=== PATIENT | female | born 1940 | race Caucasian/White ===

== ENCOUNTER → 2019-10-08 | Outpatient (CLI) | payer OTHER ==
[~2019-10-08] MED LIST: ASPI-496 PO; ATOR20TA PO; CALC-725; CARV12.52 PO; CHOL200074 PO; CYAN1TAB29 PO; ESOM40CA; METH454P PO; MULT-26 PO; NEBI5TAB3; VALS1TAB15; VALS1TAB29 PO; VIT1CAPS11 PO
[2019-10-08 14:34] LABS: BASOPHILS # (AUTO) 0.06 x10^3/uL (0-0.1); BASOPHILS % (AUTO) 1 % (0-1); EOSINOPHILS # (AUTO) 0.22 x10^3/uL (0-0.4); EOSINOPHILS % (AUTO) 3 % (1-7); LYMPHOCYTES # (AUTO) 1.82 x10^3/uL (1-3.4); LYMPHOCYTES % (AUTO) 23 % (22-44); MD NO; MEAN CORPUSCULAR HEMOGLOBIN 32.9 pg (27.0-34.8); MEAN CORPUSCULAR HGB CONC 33.5 g/dL (32.4-35.8); MEAN CORPUSCULAR VOLUME 98.1 fL (80-100); MEAN PLATELET VOLUME 6.3 fL (7.4-10.4); MONOCYTES # (AUTO) 0.68 x10^3/uL (0.2-0.8); MONOCYTES % (AUTO) 9 % (2-9); NEUTROPHILS # (AUTO) 5.21 x10^3/uL (1.8-6.8); NEUTROPHILS % (AUTO) 65 % (42-75); PLATELET COUNT 382 x10^3/uL (130-400); RED BLOOD COUNT 4.08 x10^6/uL (3.82-5.3); RED CELL DISTRIBUTION WIDTH 12.8 % (9.6-15.2)
[2019-10-08 14:40] LABS: ALANINE AMINOTRANSFERASE 26 U/L (12-78); ALBUMIN 3.8 g/dL (3.4-5.0); ANION GAP 7 mmol/L (5-15); CALCIUM 9.2 mg/dL (8.5-10.1); CHLORIDE 99 mmol/L (98-107); CREATININE 1.17 mg/dL (0.55-1.02); INTERNATIONAL NORMALIZED RATIO 0.96 (0.93-1.1); PROTHROMBIN TIME 10.2 Seconds (9.6-11.5)
[2019-10-08 14:43] LABS: ALKALINE PHOSPHATASE 103 U/L (45-117); BILIRUBIN,TOTAL 0.6 mg/dL (0.2-1.0)
== END | disposition home or self-care (01) ==
LOC: STAR 13:03
PROVIDERS: ATTEND Orthopaedic Surgery
DX: Z01.818 Encounter for other preprocedural examination (principal); M16.11 Unilateral primary osteoarthritis, right hip; M25.551 Pain in right hip
CPT/HCPCS: 36415; 80053; 83036; 85025; 85610; 85730; 87081; 93005

== ENCOUNTER 2019-10-13 08:25 | Observation (INO) | payer OTHER ==
[~2019-10-13] VITALS: Ht 165.1 cm; Wt 72.0 kg
[~2019-10-13 08:25] MED LIST changes: +ACETAMINOPHEN 650 MG/20.3 ML UDC PO PRN; +BISACODYL 10 MG SUPP PR PRN; +DIPHENHYDRAMINE 50 MG CAPSULE PO PRN; +EPINEPHRINE 1 MG/ML, 1ML ONE; +KETOROLAC 60 MG/2 ML ONE; +MAGNESIUM HYDROXIDE 8%, 30ML UDC PO PRN; +ONDANSETRON 2MG/ML, 2ML IV PRN; +ONDANSETRON 4 MG TABLET PO PRN; +OXYcodone IR 5MG TABLET PO PRN; +ROPIvacaine/PF 0.2%, 20 ML ONE; +SENNA/DOCUSATE TABLET PO PRN; +SODIUM CHLORIDE 0.9% 50 ML ONE; +TRANEXAMIC ACID 100 MG/ML, 10ML ONE; +VANCOMYCIN 1,000 MG ONE; +ZOLPIDEM 5MG TABLET PO PRN
[2019-10-13] MEDS ORDERED: MIDAZOLAM 1 MG/ML, 2ML ONE (08:39)
[2019-10-13] MEDS ORDERED: FENTANYL PF 250 MCG/5ML ONE (08:39)
[2019-10-13] MEDS: CARVEDILOL 12.5 MG TABLET PO SCH ×2 (09:00→19:49)
[2019-10-13] MEDS: DOCUSATE 100 MG CAPSULE PO SCH ×2 (09:00→19:49)
[2019-10-13] MEDS: ATORVASTATIN 20 MG TABLET PO SCH (09:00)
[2019-10-13] MEDS ORDERED: LACTATED RINGERS 1,000 ML IV SCH (09:20)
[2019-10-13 09:23] VITALS: BP 160/74
[2019-10-13] MEDS ORDERED: ACETAMINOPHEN 500 MG TABLET PO ONE (09:30)
[2019-10-13] MEDS ORDERED: GABAPENTIN 300 MG CAPSULE PO ONE (09:30)
[2019-10-13] MEDS ORDERED: CHLORHEXIDINE 15 ML UDC MM ONE (09:30)
[2019-10-13] MEDS ORDERED: ACETAMINOPHEN 500 MG TABLET ONE (09:31)
[2019-10-13] MEDS ORDERED: CHLORHEXIDINE 15 ML UDC ONE (09:32)
[2019-10-13] MEDS ORDERED: GABAPENTIN 300 MG CAPSULE ONE (09:32)
[2019-10-13] MEDS ORDERED: LABETALOL 5MG/ML, 20ML IV PRN (10:00)
[2019-10-13] MEDS ORDERED: HYDROmorphone 1 MG/ML, 1ML INJ IVPush PRN (10:00)
[2019-10-13] MEDS ORDERED: hydrALAzine 20 MG/ML, 1ML IV PRN (10:00)
[2019-10-13] MEDS ORDERED: HYDROcodone/APAP 7.5-325MG/15ML UDC PO PRN (10:00)
[2019-10-13] MEDS ORDERED: morphine SULFATE 10 MG/ML, 1ML IVPush PRN (10:00)
[2019-10-13] MEDS ORDERED: ONDANSETRON 2MG/ML, 2ML IVPush PRN (10:00)
[2019-10-13] MEDS ORDERED: PROMETHAZINE 25 MG/ML, 1ML IVPush PRN (10:00)
[2019-10-13] MEDS ORDERED: CEFAZOLIN 1,000 MG ONE ×2 (10:20)
[2019-10-13] MEDS ORDERED: hydrALAzine 20 MG/ML, 1ML ONE (10:40)
[2019-10-13] MEDS ORDERED: ONDANSETRON 2MG/ML, 2ML ONE (10:57)
[2019-10-13] MEDS ORDERED: ROCURONIUM 10MG/ML,5ML ONE (10:57)
[2019-10-13] MEDS ORDERED: DEXAMETHASONE 4 MG/ML, 1ML ONE (10:57)
[2019-10-13] MEDS ORDERED: PROPOFOL 10 MG/ML, 20ML ONE (10:57)
[2019-10-13] MEDS ORDERED: FENTANYL PF 100 MCG/2ML ONE (11:43)
[2019-10-13] MEDS: FENTANYL PF 100 MCG/2ML IV PRN ×3 (11:45→12:11)
[2019-10-13] MEDS: NS + 20MEQ KCL 1,000 ML IV SCH (14:39)
[2019-10-13] MEDS: ASPIRIN 81 MG TABLET EC PO SCH (17:54)
[2019-10-13] MEDS: CEFAZOLIN PMX 2GM/50ML 50 ML IVPB SCH (17:54)
[2019-10-13 18:43] VITALS: BP 117/72
[2019-10-13] MEDS: HYDROcodone/APAP 5/325 TABLET PO PRN (22:41)
[2019-10-14 00:18] VITALS: BP 100/50
[2019-10-14] MEDS: CEFAZOLIN PMX 2GM/50ML 50 ML IVPB SCH (02:02)
[2019-10-14] MEDS: NS + 20MEQ KCL 1,000 ML IV SCH (02:14)
[2019-10-14] MEDS: HYDROcodone/APAP 5/325 TABLET PO PRN ×2 (02:30→08:13)
[2019-10-14 03:23] VITALS: BP 91/55
[2019-10-14] MEDS ORDERED: DEXAMETHASONE 4 MG/ML, 1ML IVPush SCH (06:00)
[2019-10-14] MEDS: ASPIRIN 81 MG TABLET EC PO SCH (06:01)
[2019-10-14 06:30] VITALS: BP 110/62
[2019-10-14] MEDS: CARVEDILOL 12.5 MG TABLET PO SCH (08:09)
[2019-10-14] MEDS: ATORVASTATIN 20 MG TABLET PO SCH (08:09)
[2019-10-14] MEDS: DOCUSATE 100 MG CAPSULE PO SCH (08:10)
[2019-10-14] MEDS ORDERED: HYDROCHLOROTHIAZIDE 12.5 MG CAPSULE PO SCH (09:00)
[2019-10-14] MEDS ORDERED: VALSARTAN 320 MG TABLET PO SCH (09:00)
[2019-10-14] MEDS ORDERED: OXYC5CAP2 PO (10:21)
[2019-10-14] MEDS ORDERED: MELO7.5T31 PO (10:22)
[2019-10-14] MEDS ORDERED: TRAM50TA2 PO (10:22)
== END 2019-10-14 12:23 | disposition home or self-care (01) ==
LOC: OUT 08:25 → 4NE 13:13 → OUT 20:06 → 4NE 20:07 → DCLOUNGE 10-14 12:09
PROVIDERS: ADMIT Orthopaedic Surgery; ATTEND Orthopaedic Surgery
DX: Z03.818 Encounter for observation for suspected exposure to other biological agents ruled out (principal); M16.11 Unilateral primary osteoarthritis, right hip
CPT/HCPCS: 27130; 36415; 72170; 73501; 76000; 85014; 85018; 87635; 96365; 96366; 96375; 97163; 97165; C1713; C1776; G0378; J0171; J0360; J0690; J1100; J2250; J2405; J2704; J2795; J3010; J3370; J3480; J7120; J1885